=== PATIENT | female | born 1965 | race Caucasian/White ===

== ENCOUNTER 2017-03-13 12:33 | Emergency (ER) | payer OTHER ==
[~2017-03-13] VITALS: Ht 167.6 cm; Wt 97.0 kg
[~2017-03-13 12:33] MED LIST: ALPR0.5T3 PO; BUTACAP2 PO; CITA-48 PO; COUM2TAB PO; DEPA500T3 PO; GABA300C3 PO; HYDR-3580 PO; MULT-65 PO; PRAV20 PO; TRAM100T19 PO; WARF10 PO; Z.0.COMMODE-3:1; Z.0.WALKERFRONT
--- NOTE | 2017-03-13 13:05 | PD ---
HPI Chief Complaint: headache Time Seen by Provider: 12:46 Travel History International Travel<30 days: No Contact w/Intl Traveler<30days: No Traveled to known affect area: No History of Present Illness HPI 51-year-old female complains headache, dizziness, nausea, flushing sensation. Patient states that the symptoms started week ago and has been persistent since then. Patient has history of migraine headache, DVT and PE, superficial vein thrombosis, factor V Leiden, ductal carcinoma in situ status post bilateral mastectomy with reconstruction. Patient is on Coumadin and her last INR was 1.9. Patient also has history of asthma, depression, GERD, hyperlipidemia, stress incontinence, neck pain status post cervical fusion. Patient states that she has increasing neck pain recently. Patient denies any recent injury to the head and neck area. Patient states that she has mild photophobia with headache. PFSH Past Medical History Hx Anticoagulant Therapy: No (recently off coumadin) Arthritis: Yes (right knee, 2ND TOE RT. FOOT) Asthma: Yes (diagnosed with asthma at 19) Autoimmune Disease: No Anxiety: Yes Depression: Yes Heart Rhythm Problems: No Cancer: Yes (RIGHT BREAST, ZOE. MASTECTOMY) Cardiovascular Problems: No High Cholesterol: Yes Chemotherapy: No Diabetes: No Diminished Hearing: No Deep Vein Thrombosis: Yes Endocrine: No Gastrointestinal Disorders: Yes (issues with constipation) GERD: Yes Genitourinary: No Headaches: Yes Hepatitis: No Hiatal Hernia: No Immune Disorder: No Musculoskeletal: Yes (OSTEOARTHRITIS) Neurologic: Yes ( NEUROPATHY, MIGRAINES) Psychiatric: Yes (ANXIETY) Reproductive: No Respiratory: Yes (HX. PULM. EMBOLISM, asthma) Immunizations Current: Yes Migraines: Yes Radiation Therapy: No Seizures: No Shingles: Yes Thyroid Disease: No Triglycerides - High: Yes : 2 Para: 2 Miscarriage: 0 : 0 Past Surgical History Abdominal Surgery: Yes (CHOLECYSTECTOMY) AICD: No Body Medical Devices: ZOE BREASTS, ?NECK HARDWARE Section: Yes (X2) Cholecystectomy: Yes Ear Surgery: No Endocrine Surgery: No Eye Surgery: No Genitourinary Surgery: No Gynecologic Surgery: Yes (C-SECT. X2) Joint Replacement: No Mastectomy: Yes (DOUBLE WITH TISSUE BRIM PRESSER IN RIGHT SIDE) Neurologic Surgery: No Oral Surgery: No Pacemaker: No Thoracic Surgery: Yes (zoe. mastectomy and reconstruction) Other Surgery: Yes (LITISAMUS DORSI FLAT) Social History Alcohol Use: Yes (WEEKENDS) Tobacco Use: No ( A TEEN) Substance Use: No Allergies-Medications (Allergen,Severity, Reaction): Coded Allergies: Demerol (Verified Allergy, Severe, NAUSEA AND VOMITING, 06/28/16) Levaquin (Verified Allergy, Severe, ACHILLES TENDON PAIN, 06/28/16) MRI PRECAUTION (Verified Adverse Reaction, Severe, 06/28/16) Morphine (Verified Adverse Reaction, Severe, NAUSEA AND VOMITING, 06/28/16) Adhesives (Verified Adverse Reaction, Mild, RASH, 06/28/16) Uncoded Allergies: DERMABOND (Allergy, Severe, BLISTERS, 06/28/16) Reported Meds & Prescriptions Reported Meds & Active Scripts Active Commode-3:1 Device 1 Unit Walker Front Wheel (Walkerfront) Device 1 Unit Hydrocodone/Acetaminophen 7.5 mg/325 mg 1 Tab 1 Tab PO Q4H PRN Reported Coumadin 2 mg (Warfarin Sodium) Warfarin Sodium 2 mg Tab 2 Mg PO DAILY Gabapentin 300 Mg Cap 600 Mg PO HS Citalopram Hydrobromide 40 Mg Tab 40 Mg PO DAILY Depakote ER 500 mg (Divalproex Sodium) 500 Mg Tab 1 Tab PO DAILY Tramadol HCl ER (Tramadol HCl) 100 Mg Tab 100 Mg PO Q12H PRN Butalbital/Acetaminophen/ (Acetaminophen/Butalbital/Caffeine) Cap 1 Cap PO Q6H Coumadin (Warfarin Sod) 10 Mg Tab 10 Mg PO DAILY Pravastatin Sodium 20 Mg Tab 20 Mg PO HS Alprazolam 0.5 Mg Tab 0.5 Mg PO DAILY PRN Multi-Vitamin Daily (Multivitamins) Daily Tab 1 Tab PO DAILY Review of Systems General / Constitutional: No: Fever Eyes: No: Visual changes HENT: Positive: Headaches Cardiovascular: No: Chest Pain or Discomfort Respiratory: No: Shortness of Breath Gastrointestinal: Positive: Nausea, No: Abdominal Pain Genitourinary: No: Dysuria Musculoskeletal: No: Pain Skin: No Rash Neurologic: No: Weakness Psychiatric: No: Depression Endocrine: No: Polydipsia Hematologic/Lymphatic: No: Easy Bruising Physical Exam Narrative GENERAL: Well-nourished, well-developed patient. SKIN: Focused skin assessment warm/dry. HEAD: Normocephalic. EYES: No scleral icterus. No injection or drainage. Pupils 3 mm equal reactive. NECK: Supple, trachea midline. No JVD or lymphadenopathy. Mild tenderness paraspinal areas cervical spine. No midline tenderness. No meningismus. CARDIOVASCULAR: Regular rate and rhythm without murmurs, gallops, or rubs. RESPIRATORY: Breath sounds equal bilaterally. No accessory muscle use. GASTROINTESTINAL: Abdomen soft, non-tender, nondistended. MUSCULOSKELETAL: No cyanosis, or edema. BACK: Nontender without obvious deformity. No CVA tenderness. Neurologic exam: Patient's awake and alert oriented 3. No obvious focal neurological deficit. Data Data Last Documented VS Vital Signs Date Time Temp Pulse Resp B/P Pulse Ox O2 Delivery O2 Flow Rate FiO2 03/13/17 13:23 66 03/13/17 13:23 98 Room Air 03/13/17 13:19 99.4 14 112/57 Orders Complete Blood Count With Diff (03/13/17 12:58) Comprehensive Metabolic Panel (03/13/17 12:58) Prothrombin Time / Inr (Pt) (03/13/17 12:58) Act Partial Throm Time (Ptt) (03/13/17 12:58) Urinalysis - C+S If Indicated (03/13/17 12:58) Thyroid Stimulating Hormone (03/13/17 12:58) Influenzae A/B Antigen (03/13/17 12:58) Chest, Single Ap (03/13/17 12:58) Iv Access Insert/Monitor (03/13/17 12:58) Ecg Monitoring (03/13/17 12:58) Oximetry (03/13/17 12:58) Ct Brain W/O Iv Contrast(Rout) (03/13/17 12:58) Ct Cerv Spine W/O Contrast (03/13/17 12:58) C-Reactive Protein (Crp) (03/13/17 12:58) [place] Sedimentation Rate (03/13/17 12:58) Labs Laboratory Tests Test 03/13/17 13:40 White Blood Count 6.8 TH/MM3 Red Blood Count 4.58 MIL/MM3 Hemoglobin 14.2 GM/DL Hematocrit 41.9 % Mean Corpuscular Volume 91.4 FL Mean Corpuscular Hemoglobin 31.0 PG Mean Corpuscular Hemoglobin 33.9 % Concent Red Cell Distribution Width 14.2 % Platelet Count 210 TH/MM3 Mean Platelet Volume 9.6 FL Neutrophils (%) (Auto) 51.6 % Lymphocytes (%) (Auto) 37.4 % Monocytes (%) (Auto) 6.7 % Eosinophils (%) (Auto) 3.6 % Basophils (%) (Auto) 0.7 % Neutrophils # (Auto) 3.5 TH/MM3 Lymphocytes # (Auto) 2.5 TH/MM3 Monocytes # (Auto) 0.5 TH/MM3 Eosinophils # (Auto) 0.2 TH/MM3 Basophils # (Auto) 0.0 TH/MM3 CBC Comment DIFF FINAL Differential Comment Prothrombin Time 16.2 SEC Prothromb Time International 1.4 RATIO Ratio Activated Partial 29.9 SEC Thromboplast Time Urine Color LIGHT-YELLOW Urine Turbidity CLEAR Urine pH 6.5 Urine Specific [place] 1.002 Urine Protein NEG mg/dL Urine Glucose (UA) NEG mg/dL Urine Ketones NEG mg/dL Urine Occult Blood TRACE Urine Nitrite NEG Urine Bilirubin NEG Urine Urobilinogen LESS THAN 2.0 MG/DL Urine Leukocyte Esterase NEG Urine RBC 1 /hpf Urine WBC LESS THAN 1 /hpf Urine Squamous Epithelial 1 /hpf Cells Microscopic Urinalysis Comment CULT NOT INDICATED Sodium Level 142 MEQ/L Potassium Level 4.0 MEQ/L Chloride Level 108 MEQ/L Carbon Dioxide Level 24.8 MEQ/L Anion Gap 9 MEQ/L Blood Urea Nitrogen 16 MG/DL Creatinine 0.79 MG/DL Estimat Glomerular Filtration 76 ML/MIN Rate Random Glucose 83 MG/DL Calcium Level 8.9 MG/DL Total Bilirubin 0.4 MG/DL Aspartate Amino Transf 28 U/L (AST/SGOT) Alanine Aminotransferase 89 U/L (ALT/SGPT) Alkaline Phosphatase 71 U/L C-Reactive Protein 1.40 MG/DL Total Protein 6.7 GM/DL Albumin 3.7 GM/DL Thyroid Stimulating Hormone 1.250 uIU/ML 3rd Gen [facility] Medical Decision Making Medical Screen Exam Complete: Yes Emergency Medical Condition: Yes Interpretation(s) Last Impressions Head CT 03/13/17 1258 Signed Impressions: Service Date/Time: Monday, March 13, 2017 13:43 - CONCLUSION: Negative for acute process.. Min Siegel MD FACR Chest X-Ray 03/13/17 1258 Signed Impressions: Service Date/Time: Monday, March 13, 2017 12:59 - CONCLUSION: No acute disease. Min Siegel MD FACR 15 12 PM. CBC within normal limit. CMP within normal limit. C-reactive protein 1.40. UA is negative. INR 1.4. Influenza AB antigen negative. [address] cervical spine shows DJD changes. No acute pathology. Fusion of C4- C5. Differential Diagnosis Differential diagnosis including migraine headache, tension headache, cluster headache, encephalitis, acute exacerbation of neck pain, viral syndrome, coagulopathy. Narrative Course [age] female with headache, photophobia, nausea, increasing neck pain, flushing sensation for the past week. History of migraine headache and history of cervical fusion. Diagnosis Primary Impression: Cephalgia Qualified Code: R51 - Nonintractable episodic headache, unspecified headache type Additional Impression: Viral syndrome Patient Instructions: General Instructions Additional Instructions: Advised patient to discuss Coumadin dosage with her physician. Continue with Fioricet and tramadol as needed for headache. Follow-up with personal physician and neurologist. Return if worse. Med/Other Pt SpecificInfo: No Change to Meds Scripts Tramadol 50 Mg Tab50 Mg PO Q6H PRN (HEADACHE) #30 TAB Ref 0 Prov:Ezekiel Kellogg MD 03/13/17 [id number]-Kljnebks (Fioricet)50-300-40 Mg Cap1-2 Cap PO Q6H PRN ( HEADACHE) #30 CAP Ref 0 Prov:Ezekiel Kellogg MD 03/13/17 Disposition: 01 DISCHARGE HOME Condition: Stable Ezekiel Kellogg MD Mar 13, 2017 13:05
--- NOTE | 2017-03-13 13:15 | RADRPT ---
EXAM DATE/TIME: 03/13/2017 12:59 [facility] COMPARISON: No previous studies available for comparison. INDICATIONS : Shortness of breath. MEDICAL HISTORY : None. SURGICAL HISTORY : None. ENCOUNTER: Initial ACUITY: 3 days PAIN SCORE: 0/10 LOCATION: Bilateral chest FINDINGS: A single view of the chest demonstrates the lungs to be symmetrically aerated without evidence of mas s, infiltrate or effusion. The cardiomediastinal contours are unremarkable. Osseous structures are intact. CONCLUSION: No acute disease. Min Siegel MD FACR on March 13, 2017 at 13:12 Board Certified Radiologist. This report was verified electronically.
[2017-03-13 13:19] VITALS: BP 112/57; PULSE 66; RESP 14; TEMP 99.4; O2SAT 97
[2017-03-13 13:23] VITALS: PULSE 66; PULSE 68; O2SAT 98
[2017-03-13 13:56] LABS: AUTOMATED NEUTROPHIL # 3.5 TH/MM3 (1.8-7.7); BASOPHIL % 0.7 % (0.0-2.0); EOSINOPHIL # 0.2 TH/MM3 (0-0.4); EOSINOPHIL % 3.6 % (0.0-4.0); HEMATOCRIT 41.9 % (35.0-46.0); HEMO FLAGS DIFF FINAL; LYMPH % 37.4 % (9.0-44.0); LYMPHOCYTE # 2.5 TH/MM3 (1.0-4.8); MEAN CELL VOLUME 91.4 FL (80.0-100.0); MEAN CORPUSCULAR HGB CONC 33.9 % (32.0-36.0); MONO % 6.7 % (0.0-8.0); NEUT % 51.6 % (16.0-70.0); PLATELET COUNT 210 TH/MM3 (150-450); RED BLOOD COUNT 4.58 MIL/MM3 (4.00-5.30); RED CELL DISTRIBUTION WIDTH 14.2 % (11.6-17.2); WHITE BLOOD COUNT 6.8 TH/MM3 (4.0-11.0)
--- NOTE | 2017-03-13 13:57 | RADRPT ---
EXAM DATE/TIME: 03/13/2017 13:43 [facility] COMPARISON: CT BRAIN W/O CONTRAST, May 13, 2014, 9:26. INDICATIONS : Headaches. RADIATION DOSE: 34.08 CTDIvol (mGy) MEDICAL HISTORY : Carcinoma, breast. SURGICAL HISTORY : ENCOUNTER: Initial ACUITY: 1 day PAIN SCALE: Non-responsive LOCATION: cranial TECHNIQUE: Multiple contiguous axial images were obtained of the head. Using automated exposure control and adj ustment of the mA and/or kV according to patient size, radiation dose was kept as low as reasonably a chievable to obtain optimal diagnostic quality images. FINDINGS: CEREBRUM: The ventricles are normal for age. No evidence of midline shift, mass lesion, hemorrhage or acute in farction. No extra-axial fluid collections are seen. POSTERIOR FOSSA: The cerebellum and brainstem are intact. The 4th ventricle is midline. The cerebellopontine angle i s unremarkable. EXTRACRANIAL: The visualized portion of the orbits is intact. SKULL: The calvaria is intact. No evidence of skull fracture. CONCLUSION: Negative for acute process.. Min Siegel MD FACR on March 13, 2017 at 13:51 Board Certified Radiologist. This report was verified electronically.
[2017-03-13 14:02] LABS: BLOOD, URINE TRACE (NEG); GLUCOSE,URINE NEG (NEG); KETONE, URINE NEG (NEG); NITRITE,URINE NEG (NEG); PH, URINE 6.5 (5.0-8.5); SQUAMOUS EPITHELIAL CELL URINE 1 /hpf (0-5); URINE COLOR LIGHT-YELLOW (YELLW/STRAW)
[2017-03-13 14:03] LABS: COMMENT (UR) CULT NOT INDICATED; CULTURE IF INDICATED CULT NOT INDICATED
[2017-03-13 14:08] LABS: APTT (PATIENT) 29.9 SEC (24.3-30.1); INTERNATIONAL NORMALIZED RATIO 1.4 RATIO; PROTHROMBIN TIME - PATIENT 16.2 SEC (9.8-11.6)
[2017-03-13 14:16] LABS: ALT (GPT) 89 U/L (10-53); ANION GAP 9 MEQ/L (5-15); AST (GOT) 28 U/L (15-37); BICARBONATE 24.8 MEQ/L (21.0-32.0); BLOOD UREA NITROGEN 16 MG/DL (7-18); CHLORIDE 108 MEQ/L (98-107); GLOMERULAR FILTRATION RATE 76 ML/MIN (>89); SODIUM (NA) 142 MEQ/L (136-145)
[2017-03-13 14:26] LABS: ALKALINE PHOSPHATASE 71 U/L (45-117); TOTAL BILIRUBIN ADULT 0.4 MG/DL (0.2-1.0)
--- NOTE | 2017-03-13 15:37 | RADRPT ---
EXAM DATE/TIME: 03/13/2017 13:43 [facility] COMPARISON: CT CERVICAL SPINE W/O CONTRAST, May 13, 2014, 11:07. INDICATIONS : Head and neck pain for one week. RADIATION DOSE: 21.23 CTDIvol (mGy) MEDICAL HISTORY : Carcinoma, breast. SURGICAL HISTORY : Fusion, cervical. ENCOUNTER: Initial ACUITY: 1 week PAIN SCALE: 0/10 LOCATION: neck TECHNIQUE: Volumetric scanning of the cervical spine was performed. Multiplanar reconstructions in the sagittal, coronal and oblique axial planes were performed. Using automated exposure control and adjustment o f the mA and/or kV according to patient size, radiation dose was kept as low as reasonably achievable to obtain optimal diagnostic quality images. FINDINGS: Thin section axial imaging of the cervical spine was performed. Sagittal and coronal imaging demonstrate adequate alignment of the vertebral bodies. The patient is f used across the C4/5 level the hardware appears well-positioned. There are degenerative changes at C3 /4, C5/6 and C6/7. No acute fracture is identified. The atlantodens joint is intact. C1/2: No acute bony abnormality identified. C2/3: The thecal space is adequate. The neural foramina are adequate. No significant abnormality is identif ied. C3/4: The thecal space is adequate. The neural foramina are adequate. No significant abnormality is identif ied. C4/5: This level is fused. The hardware is well-positioned. The thecal space and foramina are adequate. C5/6: The thecal space and neural foramina are adequate. There are mild degenerative changes. C6/7: There is a small broad-based disc bulge. The thecal space and foramina are adequate. C7/T1: The thecal space is adequate. The neural foramina are adequate. There are mild degenerative changes. No significant abnormality is identified. CONCLUSION: 1. The patient is fused across the C4-5 level. There are degenerative changes at C3/4, C5/6 and C6/7. There is no definite neural foraminal stenosis or spinal stenosis identified. Cristi Siegel MD on March 13, 2017 at 15:29 Board Certified Radiologist. This report was verified electronically.
[2017-03-13] MEDS ORDERED: BUTA1CAP PO (15:59)
[2017-03-13] MEDS ORDERED: TRAM50TA PO (15:59)
== END 2017-03-13 16:28 | disposition home or self-care (01) ==
LOC: NEPD 12:33
DX: B34.9 Viral infection, unspecified (principal); E78.00 Pure hypercholesterolemia, unspecified; K21.9 Gastro-esophageal reflux disease without esophagitis; Z86.718 Personal history of other venous thrombosis and embolism
CPT/HCPCS: 70450; 71010; 72125; 80053; 81001; 84443; 85025; 85610; 85730; 86140; 87804; 99285

== ENCOUNTER 2018-07-16 10:03 | Observation (INO) ==
[2018-07-16] MEDS ORDERED: Acetaminophen 325 MG Tablet PO ONE (11:36)
[2018-07-16] MEDS ORDERED: Sodium Chlor 0.9% Inj 500 ML IV.SIG SCH (12:00)
[2018-07-16 12:08] LABS: Baso % (Auto) 0.5 % (0.0-2.0); Eos # (Auto) 0.1 th/mm3 (0.0-0.4); Eos % (Auto) 1.5 % (0.0-4.0); Hematocrit 47.2 % (35.0-46.0); Hemoglobin 15.9 gm/dL (11.6-15.3); Lymph # (Auto) 2.6 th/mm3 (1.0-4.8); Mean Corpuscular HGB Conc 33.8 % (32.0-36.0); Mean Corpuscular Hemoglobin 31.9 pg (27.0-34.0); Mean Corpuscular Volume 94.3 fL (80.0-100.0); Mean Platelet Volume 9.7 fL (7.0-11.0); Mono # (Auto) 0.6 th/mm3 (0.0-0.9); Mono % (Auto) 9.1 % (0.0-8.0); Neut # (Auto) 3.3 th/mm3 (1.8-7.7); Neut % (Auto) 49.9 % (16.0-70.0); Platelet Count 200 th/mm3 (150-450); Red Cell Distribution Width 14.5 % (11.6-17.2); White Blood Count 6.6 th/mm3 (4.0-11.0)
[2018-07-16 12:16] LABS: Activated Partial Thrombo Time 28.8 sec (24.3-30.1); INR 2.1 Ratio; Prothrombin Time 21.6 sec (9.8-11.6)
[2018-07-16 12:21] LABS: Alanine Aminotransferase 24 U/L (10-53); Albumin 3.9 g/dL (3.4-5.0); Anion Gap 11 meq/L (5-15); Aspartate Aminotransferase 16 U/L (15-37); Blood Urea Nitrogen 13 mg/dL (7-18); Calcium 9.4 mg/dL (8.5-10.1); Chloride 108 meq/L (98-107); Glomerular Filtration Rate 53 mL/min (>89); Glucose,Random 73 mg/dL (74-106); Potassium 3.7 meq/L (3.5-5.1); Sodium 144 meq/L (136-145)
[2018-07-16 12:27] LABS: Alkaline Phosphatase 67 U/L (45-117); Total Protein 7.1 g/dL (6.4-8.2)
[2018-07-16 12:36] LABS: Creatine Kinase 81 U/L (26-192)
--- NOTE | 2018-07-16 12:40 | XR ---
EXAM DATE: 07/16/2018 11:36 AM EDT AGE/SEX: 53 years / Female INDICATIONS: Chest pain. CLINICAL DATA: This is the patient's initial encounter. Patient reports that signs and symptoms have been present for 1 day and indicates a pain score of 7/10. MEDICAL/SURGICAL HISTORY: Carcinoma, breast. Mastectomy, bilateral. COMPARISON: [facility] [place] SING[place], 03/13/2017. . FINDINGS: No significant new focal pleural or parenchymal opacities. The cardiomediastinal contours are unremar kable. Osseous structures are intact. CONCLUSION: 1. No acute cardiopulmonary disease. Electronically signed by: Milton Jeffries MD 07/16/2018 12:39 PM EDT
--- NOTE | 2018-07-16 13:21 | CT ---
EXAM DATE: 07/16/2018 12:33 PM EDT AGE/SEX: 53 years / Female INDICATIONS: Cephalgia. CLINICAL DATA: This is the patient's initial encounter. Patient reports that signs and symptoms have been present for 3 days and indicates a pain score of 8/10. MEDICAL/SURGICAL HISTORY: . Pulmonary emboli. Mastectomy, bilateral. Cholecystectomy. RADIATION DOSE: 56.35 CTDI (mGy) COMPARISON: [facility] – [place], [place] BRAIN W/O CONTRAST, 03/13/2017. . TECHNIQUE: CT of the head without contrast. Using automated exposure control and adjustment of the mA and/or kV according to patient size, radiation dose was kept as low as reasonably achievable to ob tain optimal diagnostic quality images. DICOM format image data is available electronically for revi ew and comparison. FINDINGS: Cerebrum: The ventricles are normal for age. No evidence of midline shift, mass lesion, hemorrhage or acute infarction. No extraaxial fluid collections are seen. Posterior Fossa: The cerebellum and brainstem are intact. The 4th ventricle is midline. The cerebe llopontine angle is unremarkable. Extracranial: The visualized portion of the orbits is intact. Skull: The calvaria is intact. No evidence of skull fracture. CONCLUSION: 1. Negative CT Head non contrast. . Electronically signed by: Santo Olson MD 07/16/2018 1:20 PM EDT
--- NOTE | 2018-07-16 13:22 | CT ---
EXAM DATE: 07/16/2018 12:33 PM EDT AGE/SEX: 53 years / Female INDICATIONS: Chest pain for three days, dizziness. CLINICAL DATA: This is the patient's initial encounter. Patient reports that signs and symptoms have been present for 3 days and indicates a pain score of 8/10. MEDICAL/SURGICAL HISTORY: . Pulmonary emboli. Cholecystectomy. Mastectomy, bilateral. RADIATION DOSE: 10.55 CTDI (mGy) COMPARISON: [facility], CHEST 1V SINGLE AP, 07/16/2018. . TECHNIQUE: Volumetric scanning was performed using a multi-row detector CT scanner during bolus infu sadaf of 75 ml Omnipaque 350 (iohexol) nonionic water-soluble contrast as a single exam dose. The arelis a was post processed with a variety of visualization algorithms including full volume maximum intensi ty projection and sliding thin slab reformation. Using automated exposure control and adjustment of the mA and/or kV according to patient size, radiation dose was kept as low as reasonably achievable t o obtain optimal diagnostic quality images. DICOM format image data is available electronically for review and comparison. FINDINGS: Bilateral breast implants are noted. The lungs are clear. There is no adenopathy. No pleural or peric ardial effusions. There is no evidence for pulmonary embolism. CONCLUSION: 1. This study is negative for pulmonary embolism. Electronically signed by: Santo Olson MD 07/16/2018 1:21 PM EDT
--- NOTE | 2018-07-16 14:31 | ED ---
HPI General Chief complaint: Chest Pain Stated complaint: Chest Pain/Headache Complaint Time Seen by Provider: 07/16/18 10:53 Source: patient Mode of arrival: ambulatory Limitations: no limitations History of Present Illness HPI narrative: Patient is a 53 year old female who comes in complaining of chest pain. She says she started to have pain under her left breast Monday on the way to [place]. She says that the pain was coming and going and radiating into her left shoulder. She says that Monday the pain got better, but then came back again late last night. She denies any shortness of breath. She is on Coumadin for history of PE. She says today she also started to have a migraine took her migraine medication at home without relief of her symptoms. She says she feels a squeezing in her head. She denies any blurred vision, nausea or vomiting. Severity is moderate. Related Data Home Medications Medication Instructions Recorded Confirmed alprazolam [Xanax] 0.5 mg PO BID PRN 07/16/18 07/16/18 citalopram 40 mg PO DAILY 07/16/18 07/16/18 divalproex 750 mg PO DAILY 07/16/18 07/16/18 gabapentin 300 mg PO QPM 07/16/18 07/16/18 pravastatin 40 mg PO DAILY 07/16/18 07/16/18 rizatriptan 10 mg PO Q2-4H PRN 07/16/18 07/16/18 warfarin 12.5 mg PO DAILY 07/16/18 07/16/18 Allergies Allergy/AdvReac Type Severity Reaction Status Date / Time levofloxacin Allergy Severe ACHILLES Verified 07/16/18 10:59 TENDON PAIN meperidine Allergy Severe NAUSEA AND Verified 07/16/18 10:59 VOMITING morphine AdvReac Severe NAUSEA AND Verified 07/16/18 10:59 VOMITING adhesive AdvReac Mild RASH Verified 07/16/18 10:59 DERMABOND Allergy Severe BLISTERS Uncoded 07/16/18 10:59 MRI PRECAUTION AdvReac Severe Anaphylaxis Uncoded 07/16/18 10:59 Review of Systems ROS: all other systems reviewed are negative Constitutional Denies chills and Denies fever(s) Eyes Denies blurry vision ENT Denies dizziness and Reports headache(s) Cardiovascular Reports chest pain Respiratory Denies cough and Denies dyspnea Gastrointestinal Denies abdominal pain and Denies vomiting Integumentary/Breasts Denies sores and Denies wounds Neurologic Denies focal weakness and Denies numbness [facility] Medical History Medical History History of anxiety (Acute) History of depression (Acute) History of high cholesterol (Acute) History of panic attacks (Acute) Hx of migraine headaches (Acute) Hx of pulmonary embolus (Acute) Hx of vertigo (Acute) Surgical History Surgical History History of knee replacement (Acute) Hx of bilateral mastectomy (Acute) Hx of cholecystectomy (Acute) Hx of mastectomy (Acute) Social History Social History Substance History: No History of Abuse Second Hand Smoke Exposure: No Smoking Status: Never smoker How Often Do You Have a Drink Containing Alcohol: Monthly or less Recent Travel in [facility] within the Last 8 Weeks: No Recent Out of Country Travel within the Last 8 Weeks: No Immunization History Tetanus Immunization: <5 Years Exam Narrative Exam Narrative: GENERAL: Awake and alert, no acute distress. SKIN: Focused skin assessment warm/dry. No wounds or signs of infection. HEAD: Atraumatic. Normocephalic. EYES: Pupils equal and round and reactive. No scleral icterus. Extraocular movements intact. ENT: Mucous membranes pink and moist. NECK: Trachea midline. No JVD. CARDIOVASCULAR: Regular rate and rhythm. No murmur appreciated. RESPIRATORY: No accessory muscle use. Clear to auscultation. Breath sounds equal bilaterally. GASTROINTESTINAL: Abdomen soft, non-tender, nondistended. MUSCULOSKELETAL: No obvious deformities. No clubbing. No cyanosis. No edema. NEUROLOGICAL: Awake and alert. No obvious cranial nerve deficits. Motor grossly within normal limits. Normal speech. PSYCHIATRIC: Appropriate mood and affect; insight and judgment normal. Course Initial Documented Vital Signs Temperature 98.5 F 07/16/18 10:04 Pulse Rate 75 07/16/18 10:04 Respiratory Rate 16 07/16/18 10:04 Blood Pressure 124/72 07/16/18 10:04 Pulse Oximetry 98 07/16/18 10:04 Last Documented Vital Signs Temperature 98.5 F 07/16/18 10:04 Pulse Rate 79 07/16/18 11:09 Respiratory Rate 18 07/16/18 11:09 Blood Pressure 124/72 07/16/18 10:04 Pulse Oximetry 97 07/16/18 11:09 Medical Decision Making MDM Narrative Medical decision making narrative: Patient is a 53-year-old female who comes in complaining of chest pain and headache. Exam shows no acute abnormalities. IV established, labs sent. Patient connected to the potline monitor. Given IV fluids, and a drill, Tylenol, Compazine for her migraine. CT head performed shows no acute abnormalities. Labs sent show no acute abnormalities. Patient reports improvement of her migraine. CT of the chest shows no evidence of PE. Patient be placed in chest pain center for further management. Medical Screen Exam Complete: Yes Emergency Medical Condition: Yes Differential Diagnosis Differential Diagnosis: ACS versus NSTEMI versus STEMI versus migraine versus dehydration Medical Records Medical records reviewed: Yes I reviewed the patient's medical records. Lab Data Lab results reviewed: Yes I reviewed the patient's lab results. Result diagrams: 07/16/18 11:43 07/16/18 11:43 Lab Results 07/16/18 07/16/18 07/16/18 Range/Units 11:43 11:43 11:43 WBC 6.6 (4.0-11.0) th/mm3 RBC 5.00 (4.00-5.30) mil/mm3 Hgb 15.9 H (11.6-15.3) gm/dL Hct 47.2 H (35.0-46.0) % MCV 94.3 (80.0-100.0) fL MCH 31.9 (27.0-34.0) pg MCHC 33.8 (32.0-36.0) % RDW 14.5 (11.6-17.2) % Plt Count 200 (150-450) th/mm3 MPV 9.7 (7.0-11.0) fL Neut % (Auto) 49.9 (16.0-70.0) % Lymph % (Auto) 39.0 (9.0-44.0) % [place] % (Auto) 9.1 H (0.0-8.0) % Eos % (Auto) 1.5 (0.0-4.0) % Baso % (Auto) 0.5 (0.0-2.0) % Neut # (Auto) 3.3 (1.8-7.7) th/mm3 Lymph # (Auto) 2.6 (1.0-4.8) th/mm3 [place] # (Auto) 0.6 (0.0-0.9) th/mm3 Eos # (Auto) 0.1 (0.0-0.4) th/mm3 Baso # (Auto) 0.0 (0.0-0.2) th/mm3 WBC Differential . Differential Comment Auto diff final PT 21.6 H (9.8-11.6) sec INR 2.1 Ratio APTT 28.8 (24.3-30.1) sec Sodium 144 (136-145) meq/L Potassium 3.7 (3.5-5.1) meq/L Chloride 108 H (98-107) meq/L Carbon Dioxide 25.0 (21.0-32.0) meq/L Anion Gap 11 (5-15) meq/L BUN 13 (7-18) mg/dL Creatinine 1.07 H (0.50-1.00) mg/dL Estimated GFR 53 L (>89) mL/min Random Glucose 73 L (74-106) mg/dL Calcium 9.4 (8.5-10.1) mg/dL Total Bilirubin 0.5 (0.2-1.0) mg/dL AST 16 (15-37) U/L ALT 24 (10-53) U/L Alkaline Phosphatase 67 (45-117) U/L Total Creatine Kinase 81 (26-192) U/L Troponin I Less than 0.02 L (0.02-0.05) ng/mL Total Protein 7.1 (6.4-8.2) g/dL Albumin 3.9 (3.4-5.0) g/dL Imaging Data Radiologist's impression: Chest CTA 07/16/18 11:36 CONCLUSION: 1. This study is negative for pulmonary embolism. Chest X-Ray 07/16/18 11:36 CONCLUSION: 1. No acute cardiopulmonary disease. Head CT 07/16/18 11:36 CONCLUSION: 1. Negative CT Head non contrast. . ECG Data EKG Prior to Arrival: No Attestation: I personally reviewed and interpreted this ECG as follows: Interpretation: ECG shows normal sinus rhythm at a rate of 71, no ST elevation or depression, normal intervals Discharge Plan Discharge Disposition Patient Disposition: 30 Still Patient Discharge Condition Condition: Stable Discharge Details Diagnosis: Chest pain, Headache Physicians Team ED Provider: Shaneka Vargas Primary Care Provider: John Dowell Attending Provider: Marco England Discharge Interventions Interventions: Vital Signs Last Done: 07/16/18 11:09 Status ED Status: Admitted Observation Patient
[2018-07-16] MEDS ORDERED: ALPRAZolam 0.25 MG Tablet PO PRN (15:32)
[2018-07-16] MEDS ORDERED: Acetaminophen 500 MG Tablet PO PRN (15:33)
--- NOTE | 2018-07-16 15:40 | P.HPCA ---
History of Present Illness Primary Care Physician: John Dowell MD Chief Complaint: Chest pain History of Present Illness: This is a 53-year-old female that presents to ED via private vehicle with her with plan of chest pain and headache. Patient states she began having intermittent left-sided sharp chest discomforts 3 days ago. C states that it happens for couple seconds but recurred to me times to count. The worst level was Monday and was a 6 out of 10. Last evening she was nauseous with it and had episode of emesis. Denies diaphoresis and shortness of breath. This morning she began having headache. States she has migraines and states that it did turn into migraine. Patient has history of pulmonary embolus from 2011. She states that she was taken off warfarin afterwards to see how she would do and developed a DVT. So now she states she will be on warfarin for the rest of her life. Cannot recall having a prior cardiac workup. Denies recent illnesses. History of PE and DVT. History of hyperlipidemia, depression, migraines and vertigo, and chronic back pain. Denies hypertension, diabetes, and known CAD. Denies family history of CAD. Lifetime non-smoker. Rarely has alcohol. - Diagnosis (1) Chest pain (2) Hyperlipidemia (3) History of pulmonary embolus (PE) (4) Chronic back pain (5) Headache Review of Systems General: Patient denies fevers, chills, and recent travel. HEENT: Patient denies headache, sore throat, difficulty swallowing. Cardiovascular: Has the chest discomfort as mentioned above. Denies sensation of heart beating rapidly or irregularly. No syncope. Denies diaphoresis. Respiratory: Denies shortness of breath or inspirational chest discomfort. Denies coughing wheezing or hemoptysis. GI: She was nauseous with an episode of emesis last evening. Patient denies diarrhea, abdominal pain, bloody stools. Musculoskeletal: Patient denies joint pain or edema. Denies calf pain or edema. Neurovascular: She had a headache today, states is her typical type of migraine. Patient denies numbness, tingling, weakness in extremities. Endocrine: Denies polyuria and polydipsia. Hematologic: Denies easy bruising. Skin: Denies rash or itching. PMFSH - History History Provided By: Patient, Family Member - Medical History Medical History: Medical History (Last Reviewed 07/16/18 @ 14:58 by Shaneka Vargas MD) History of anxiety History of depression History of high cholesterol History of panic attacks Hx of migraine headaches Hx of pulmonary embolus Hx of vertigo - Surgical History Surgical History: Surgical History (Last Reviewed 07/16/18 @ 14:58 by Shaneka Vargas MD) History of knee replacement Hx of bilateral mastectomy Hx of cholecystectomy Hx of mastectomy - Tobacco History Second Hand Smoke Exposure: No Smoking Status: Never smoker - Alcohol History How Often Do You Have a Drink Containing Alcohol: Monthly or less - Substance Use History Substance History: No History of Abuse - Travel History Recent Travel in the [place] Within the Last 8 Weeks: No Recent Travel Out of the Country Within the Last 8 Weeks: No - Immunization History Tetanus Immunization: <5 Years Medications and Allergies Active Medications: Active Medications Acetaminophen (Tylenol) 500 mg PO Q6H PRN PRN Reason: pain scale 1-5 Hydrocodone Bitart/Acetaminophen ([place] 7.5/325) 1 tab PO Q6H PRN PRN Reason: pain scale 6-10 Alprazolam (Xanax) 0.25 mg PO Q8H PRN PRN Reason: ANXIETY Aspirin (Aspirin) 325 mg PO DAILY DEE Clonidine HCl (Catapres) 0.1 mg PO Q6H PRN PRN Reason: SBP >165 OR DBP > 110 Sodium Chloride (Ns Inj) 500 mls @ 0 mls/hr IV.SIG BOLUS DEE Last Infusion: 07/16/18 13:53 Dose: Infused Ondansetron HCl (Zofran Inj) 4 mg IV.PUSH Q6H PRN PRN Reason: NAUSEA Pantoprazole Sodium (Protonix) 40 mg PO DAILY DEE Sodium Chloride (Ns Flush) 2 ml IV.FLUSH UNSCH PRN PRN Reason: FLUSH AFTER USING IV ACCESS Last Admin: 07/16/18 12:07 Dose: 2 ml Sodium Chloride (Ns Flush) 2 ml IV.FLUSH BID DEE Sodium Chloride (Ns Flush) 2 ml IV.FLUSH PRN PRN PRN Reason: FLUSH AFTER USING IV ACCESS Allergies Allergy/AdvReac Type Severity Reaction Status Date / Time levofloxacin Allergy Severe ACHILLES Verified 07/16/18 10:59 TENDON PAIN meperidine Allergy Severe NAUSEA AND Verified 07/16/18 10:59 VOMITING morphine AdvReac Severe NAUSEA AND Verified 07/16/18 10:59 VOMITING adhesive AdvReac Mild RASH Verified 07/16/18 10:59 DERMABOND Allergy Severe BLISTERS Uncoded 07/16/18 10:59 MRI PRECAUTION AdvReac Severe Anaphylaxis Uncoded 07/16/18 10:59 Home Medications Medication Instructions Recorded Confirmed Type alprazolam [Xanax] 0.5 mg PO BID PRN 07/16/18 07/16/18 History citalopram 40 mg PO DAILY 07/16/18 07/16/18 History divalproex 750 mg PO DAILY 07/16/18 07/16/18 History gabapentin 300 mg PO QPM 07/16/18 07/16/18 History pravastatin 40 mg PO DAILY 07/16/18 07/16/18 History rizatriptan 10 mg PO Q2-4H PRN 07/16/18 07/16/18 History warfarin 12.5 mg PO DAILY 07/16/18 07/16/18 History Exam Vital signs: Vital Signs 07/16/18 10:04 07/16/18 11:09 Temperature 98.5 F Pulse Rate 75 79 Respiratory Rate 16 18 Blood Pressure 124/72 Pulse Oximetry 98 97 Intake & Output 07/15/18 07/16/18 07/16/18 18:59 06:59 18:59 Intake Total 500 / 500 Balance 500 / 500 Weight 99.79 kg Intake: IV 500 / 500 NS Inj 500 ML @ Wide Open IV. 500 / 500 SIG BOLUS [facility] Rx#:[id number] Narrative: GENERAL: This is a well-nourished, well-developed patient, in no apparent distress. Patient speaks in clear complete sentences. Patient is pleasant. HEENT: Head is atraumatic and normocephalic. Neck is supple without lymphadenopathy and trachea is midline. No JVD or carotid bruits. CARDIOVASCULAR: Regular rate and rhythm without murmurs, gallops, or rubs. RESPIRATORY: Clear to auscultation. Breath sounds equal bilaterally. No wheezes , rales, or rhonchi. Chest wall is nontender. No use of accessory muscles. GASTROINTESTINAL: Abdomen is nontender, nondistended. Abdomen soft. No obvious pulsatile mass or bruit. No CVA tenderness. Strong femoral pulses bilaterally. Normal bowel sounds in all quadrants. MUSCULOSKELETAL: Patient is moving upper and lower extremities freely. No calf tenderness or edema, no Homans sign. Strong pulses in upper and lower extremities. NEUROLOGICAL: Patient is alert and oriented. Cranial nerves 2-12 are grossly intact. No focal deficits and speech is clear. SKIN: No rash and turgor is normal. Results 07/16/18 11:43 07/16/18 11:43 Cardiac Enzymes 07/16/18 Range/Units 11:43 AST 16 (15-37) U/L Troponin I Less than 0.02 L (0.02-0.05) ng/mL Coagulation 07/16/18 Range/Units 11:43 PT 21.6 H (9.8-11.6) sec APTT 28.8 (24.3-30.1) sec CBC 07/16/18 Range/Units 11:43 WBC 6.6 (4.0-11.0) th/mm3 RBC 5.00 (4.00-5.30) mil/mm3 Hgb 15.9 H (11.6-15.3) gm/dL Hct 47.2 H (35.0-46.0) % Plt Count 200 (150-450) th/mm3 Neut # (Auto) 3.3 (1.8-7.7) th/mm3 Lymph # (Auto) 2.6 (1.0-4.8) th/mm3 [place] # (Auto) 0.6 (0.0-0.9) th/mm3 Eos # (Auto) 0.1 (0.0-0.4) th/mm3 Baso # (Auto) 0.0 (0.0-0.2) th/mm3 Comprehensive Metabolic Panel 07/16/18 Range/Units 11:43 Sodium 144 (136-145) meq/L Potassium 3.7 (3.5-5.1) meq/L Chloride 108 H (98-107) meq/L Carbon Dioxide 25.0 (21.0-32.0) meq/L BUN 13 (7-18) mg/dL Creatinine 1.07 H (0.50-1.00) mg/dL Calcium 9.4 (8.5-10.1) mg/dL AST 16 (15-37) U/L ALT 24 (10-53) U/L Alkaline Phosphatase 67 (45-117) U/L Total Protein 7.1 (6.4-8.2) g/dL Albumin 3.9 (3.4-5.0) g/dL Intake and Output 07/16/18 07/16/18 07/16/18 06:59 14:59 22:59 Intake Total 500 / 500 Balance 500 / 500 Intake: IV 500 / 500 NS Inj 500 ML @ Wide Open IV. 500 / 500 SIG BOLUS DEE Rx#:[id number] Other: Weight 99.79 kg Patient Weight 07/17/18 06:59 Weight 99.79 kg - Imaging and Cardiology Imaging: Impressions Chest CTA 07/16/18 11:36 CONCLUSION: 1. This study is negative for pulmonary embolism. Chest X-Ray 07/16/18 11:36 CONCLUSION: 1. No acute cardiopulmonary disease. Head CT 07/16/18 11:36 CONCLUSION: 1. Negative CT Head non contrast. . EKG interpretations - EKG EKG shows: sinus rhythm (Initial EKG is sinus rhythm without significant ST segment depressions or elevations.) Caprini VTE Risk Assessment Caprini VTE Risk Assessment: Moderate/High Risk (score >= 2) Caprini Risk Assessment Model: Point Value = 1 Point Value = 2 Point Value = 3 Point Value = 5 Age 41-60 Minor surgery BMI > 25 kg/m2 Swollen legs Varicose veins or History of unexplained or recurrent spontaneous Oral contraceptives or hormone replacement Sepsis (< 1 month) Serious lung disease, including pneumonia (< 1 month) Abnormal pulmonary function Acute myocardial infarction Congestive heart failure (< 1 month) History of inflammatory bowel disease Medical patient at bed rest Age 61-74 Arthroscopic surgery Major open surgery (> 45 min) Laparoscopic surgery (> 45 min) Malignancy Confined to bed (> 72 hours) Immobilizing plaster cast Central venous access Age >= 75 History of VTE Family history of VTE Factor V Leiden Prothrombin [id number] Lupus anticoagulant Anticardiolipin antibodies Elevated serum homocysteine Heparin-induced thrombocytopenia Other congenital or acquired thrombophilia Stroke (< 1 month) Elective arthroplasty Hip, pelvis, or leg fracture Acute spinal cord injury (< 1 month) Prophylaxis Regimen: Total Risk Factor Score Risk Level Prophylaxis Regimen 0-1 Low Early ambulation 2 Moderate Order ONE of the following: *Sequential Compression Device (SCD) *Heparin 5000 units SQ BID 3-4 Higher Order ONE of the following medications: *Heparin 5000 units SQ TID *Enoxaparin/Lovenox 40 mg SQ daily (WT < 150 kg, CrCl > 30 mL/min) *Enoxaparin/Lovenox 30 mg SQ daily (WT < 150 kg, CrCl > 10-29 mL/min) *Enoxaparin/Lovenox 30 mg SQ BID (WT < 150 kg, CrCl > 30 mL/min) AND/OR *Sequential Compression Device (SCD) 5 or more Highest Order ONE of the following medications: *Heparin 5000 units SQ TID (Preferred with Epidurals) *Enoxaparin/Lovenox 40 mg SQ daily (WT < 150 kg, CrCl > 30 mL/min) *Enoxaparin/Lovenox 30 mg SQ daily (WT < 150 kg, CrCl > 10-29 mL/min) *Enoxaparin/Lovenox 30 mg SQ BID (WT < 150 kg, CrCl > 30 mL/min) AND *Sequential Compression Device (SCD) Assessment and Plan - Assessment (1) Chest pain Code(s): R07.9 - Chest pain, unspecified Status: Acute (2) Hyperlipidemia Code(s): E78.5 - Hyperlipidemia, unspecified Status: Acute (3) History of pulmonary embolus (PE) Code(s): Z86.711 - Personal history of pulmonary embolism Status: Acute (4) Chronic back pain Code(s): M54.9 - Dorsalgia, unspecified; G89.29 - Other chronic pain Status: Acute (5) Headache Code(s): R51 - Headache Status: Acute - Plan * Chest pain: Patient will continue to have serial cardiac enzymes and EKGs for ruling out purposes. She will be seen by Dr. England of cardiology in the chest pain center in the morning. Patient have a Lexiscan in the morning if she rules out as she states she would not be able to go on the treadmill with her chronic back pain also issues with her knees. Patient will be discharged home if her stress test is nonischemic with instructions to follow-up with PCP. Return to ED for interval issues. * Headache: Patient is feeling better after medication. CT brain was negative for any acute findings. * Hyperlipidemia: Continue medication. * History of PE: We will continue warfarin. Recheck INR in the morning. * Chronic back pain: Patient states she has no issues taking Lortab, this will be provided as needed. Patient is stable at this time. She is agreeable to this plan. (1) Chest pain Qualifiers: Chest pain type: unspecified Qualified Code(s): R07.9 - Chest pain, unspecified (5) Headache Qualifiers: Headache type: unspecified Headache chronicity pattern: acute headache Intractability: not intractable Qualified Code(s): R51 - Headache
[2018-07-16 16:42] LABS: Creatine Kinase 70 U/L (26-192)
[2018-07-16] MEDS ORDERED: Gabapentin 300 MG Capsule PO SCH (18:00)
[2018-07-16 20:53] LABS: Creatine Kinase 62 U/L (26-192)
[2018-07-16 23:01] LABS: Bacteria,Urine Occasional /hpf; Bilirubin,Urine Negative (Negative); Clarity,Urine Hazy (Clear); Color,Urine Yellow (Yellw/Straw); Glucose,Urine (UA) Negative (Negative); Hyaline Casts,Urine 1 /lpf (0-3); Leukocyte Esterase,Urine Trace (Negative); Mucus,Urine Few /lpf (Occasional); Nitrite,Urine Negative (Negative); Squamous Epithelial Cell,Urine 2 /hpf (0-5)
[2018-07-17 07:42] LABS: INR 2.6 Ratio; Prothrombin Time 26.3 sec (9.8-11.6)
[2018-07-17 08:03] VITALS: O2SAT 94
[2018-07-17 08:16] VITALS: BP 123/83; PULSE 72; RESP 12; TEMP 97.9
[2018-07-17] MEDS ORDERED: Divalproex 250 MG ER Tablet PO SCH (09:00)
[2018-07-17] MEDS ORDERED: Aspirin 325 MG Tablet PO SCH (09:00)
[2018-07-17] MEDS ORDERED: Regadenoson Inj 0.4 MG/5 ML Syringe IV.PUSH ONE (09:17)
--- NOTE | 2018-07-17 10:26 | NM ---
EXAM DATE: 07/17/2018 7:48 AM EDT AGE/SEX: 53 years / Female INDICATIONS:Angina. . Left sided chest pain. CLINICAL DATA: This is the patient's initial encounter. Patient reports that signs and symptoms have been present for 1 day and indicates a pain score of 6/10. MEDICAL/SURGICAL HISTORY: None. Cholecystectomy. Mastectomy, bilateral. Knee replacement. COMPARISON: No prior exams available for comparison. DOSE: 11.0 mCi Tc 99m Myoview at rest 35.0 mCi [id number] at stress 0.4 mg Lexiscan STRESS SYMPTOMS: Nausea and dyspnea. EJECTION FRACTION: 69 % TECHNIQUE: The patient underwent pharmacologic stress with infusion of prescribed dose. Continuous ECG tracing was monitored during stress. Gated SPECT imaging was performed after stress and conventi onal SPECT imaging was performed at rest. The examination was performed on a SPECT/CT scanner, both attenuation and non-corrected datasets were reviewed. FINDINGS: Distribution: The maximum perfused segment at stress is in the inferior wall. Perfusion Study: The pattern of perfusion at stress is within normal limits. Gated Study: There are intact wall motion and wall thickening without hypokinetic or dyskinetic segm ents. The ejection fraction is calculated at 69%. RISK CATEGORY: Low (<1% Annual Motality Rate) CONCLUSION: 1. No reversible perfusion defects are identified to suggest stress-induced myocardial ischemia. Electronically signed by: Santo Olson MD 07/17/2018 10:25 AM EDT
--- NOTE | 2018-07-17 12:34 | TR ---
Date Performed: 07/17/2018 Time Performed: 09:19:17 DOCTOR: Marco England DRUG LIST: CLINICAL HISTORY: REASON FOR TEST: REASON FOR ENDING: OBSERVATION: CONCLUSION: COMMENTS: Lexiscan stress test was performed under standard four minute protocol. Radionuclide was injected one minute prior to ending the test. No electrocardiographic abormalities were present t o suggest ischemia. Nuclear imaging and interpretation are pending.
--- NOTE | 2018-07-17 12:51 | ECG ---
Date Performed: 07/16/2018 Time Performed: 22:21:49 PTAGE: 53 years EKG: Sinus rhythm NORMAL ECG PREVIOUS TRACING : 07/16/2018 10.14 Since previous tracing, no significant change noted DOCTOR: Marco Englnad Interpretating Date/Time 07/17/2018 12:50:33
--- NOTE | 2018-07-17 13:08 | ECG ---
Date Performed: 07/16/2018 Time Performed: 10:14:06 PTAGE: 53 years EKG: Sinus rhythm NORMAL ECG PREVIOUS TRACING : 05/13/2014 09.05 Since previous tracing, no significant change noted DOCTOR: Marco England Interpretating Date/Time 07/17/2018 13:07:55
== END 2018-07-17 14:48 | disposition home or self-care (01) ==
LOC: NEPE 10:03 → NEDA 10:03 → NEPGCP 15:05